=== PATIENT | female | born 1985 | race Two or more races ===

== ENCOUNTER 2024-02-08 17:07 | Emergency (ER) | payer BC, OTHER ==
[~2024-02-08] VITALS: Ht 144.8 cm; Wt 78.5 kg
[2024-02-08 18:40] VITALS: BP 118/76; PULSE 113; RESP 18; TEMP 98.7; O2SAT 97
[2024-02-08] MEDS ORDERED: ACET500T58 PO (20:37)
== END 2024-02-08 20:50 | disposition home or self-care (01) ==
LOC: ER 17:07
DX: S50.12XA Contusion of left forearm, initial encounter (principal); S50.11XA Contusion of right forearm, initial encounter; Z79.1 Long term (current) use of non-steroidal anti-inflammatories (NSAID); Z98.890 Other specified postprocedural states; V89.2XXA Person injured in unspecified motor-vehicle accident, traffic, initial encounter; Y93.89 Activity, other specified; Y92.410 Unspecified street and highway as the place of occurrence of the external cause; Y99.8 Other external cause status